=== PATIENT | male | born 1985 | race Caucasian/White ===

== ENCOUNTER 2016-10-14 20:06 | Emergency (ER) | payer SELFPAY ==
[~2016-10-14] VITALS: Ht 172.7 cm; Wt 86.0 kg
[2016-10-14 20:08] VITALS: Ht 172.7 cm; Wt 86.0 kg
[2016-10-14] MEDS ORDERED: IBUP-1542 PO (20:36)
[2016-10-14] MEDS ORDERED: IBUPROFEN 800 MG TAB PO ONE (21:00)
--- NOTE | 2016-10-14 22:04 | ERD ---
ER Documentation Chief Complaint Date/Time DATE: 10/14/16 TIME: 22:02 Chief Complaint abscess right palm HPI Patient is a 30-year-old male with no medical problems who presents with right hand pain. The patient is right-handed. The patient has contracture of the right palmar surface. He has full range of motion. He has had no treatment as of yet. He has no fevers. He does have pain in this area. The symptoms have been there for a few years but have been worse over the past few weeks. Upon review of old medical records this the patient's first visit to the emergency department. The patient does not currently have a primary doctor. He does drink alcohol. ROS All systems reviewed and are negative except as per history of present illness. Medications Home Meds Active Scripts Ibuprofen* (Motrin*) 600 Mg Tab, 600 MG PO Q8, #30 TAB Prov:ANDRE PASCUAL MD 10/14/16 Allergies Allergies: Coded Allergies: No Known Allergy (Unverified , 10/14/16) PMhx/Soc Medical and Surgical Hx: pt denies Medical Hx, pt denies Surgical Hx Hx Alcohol Use: No Hx Substance Use: No Hx Tobacco Use: Yes Smoking Status: Current some day smoker FmHx Family History: No diabetes Physical Exam Vitals Vital Signs Date Time Temp Pulse Resp B/P Pulse Ox O2 Delivery O2 Flow Rate FiO2 10/14/16 20:08 98.3 86 20 126/75 100 Physical Exam Const: No acute distress Head: Atraumatic Eyes: Normal Conjunctiva ENT: Normal External Ears, Nose and Mouth. Neck: Full range of motion..~ No meningismus. Resp: Clear to auscultation bilaterally Cardio: Regular rate and rhythm, no murmurs Abd: Soft, non tender, non distended. Normal bowel sounds Skin: No petechiae or rashes Back: No midline or flank tenderness Ext: Hardening of the right palmar surface with mild contracture consistent with a Dupuytren's contracture Neur: Awake and alert Psych: Normal Mood and Affect Results 24 hrs Current Medications Medications (Trade) Dose Ordered Sig/Rashawn Route PRN Reason Start Time Stop Time Status Last Admin Dose Admin Ibuprofen (Motrin) 800 mg ONCE ONCE PO 10/14/16 21:00 10/14/16 21:01 DC 10/14/16 20:54 Procedures/MDM Smoking Cessation Therapy: Pt. was lectured for greater than 3 minutes on the health risks of continued smoking and the benefits of cessation. Patient is a 30-year-old male who presents with a Dupuytren's contracture of the right hand. The patient has no limitations to range of motion at this time however he will need to follow-up closely with a hand surgeon. I will give him information for Dr. Dumont. He was given ibuprofen for pain and inflammation. He will be given a prescription for this as well. He can return for any worsening symptoms. I believe outpatient management is appropriate at this time. Departure Diagnosis: Primary Impression: Dupuytren's contracture of hand Condition: Fair Patient Instructions: What Is Dupuytren's Contracture?, Treating Dupuytren's Contracture Referrals: TREMAINE DUMONT MD Additional Instructions: Specialist:Usted tiene kimberly condicin mdica que requiere que manjit a un especialista dentro de los prximos 1-2 rajan.POR FAVOR,CON GAMING SEGUIMIENTO DE PRIMARIA PHSICIAN refferal. SI USTED NO TIENE UN MDICO GENERAL Y / O USTED NO PUEDE PAGAR isra a un mdico,los siguientes navarro RECURSOS sido suministrado a usted. ES GAMING RESPONSABILIDAD PARA SER VISTOS POR EL ESPECIALISTA: ANDRE PASCUAL MD Oct 14, 2016 22:04
== END 2016-10-14 20:55 | disposition home or self-care (01) ==
LOC: FTE 20:06
DX: M72.0 Palmar fascial fibromatosis [Dupuytren] (principal); F17.210 Nicotine dependence, cigarettes, uncomplicated
CPT/HCPCS: 99283